=== PATIENT | female | born 1980 | race Caucasian/White ===

== ENCOUNTER 2017-07-31 12:23 | Outpatient (CLI) | payer BC ==
[~2017-07-31 12:23] MED LIST: Gadobenate Dimeglumine 529 MG/1 ML (20ML VIAL) ONE
--- NOTE | 2017-07-31 17:19 | MRI ---
EXAM: MRI CERVICAL SPINE WITH AND WITHOUT CONTRAST 07/31/17 HISTORY: Cervical fusion. Cervical radiculopathy. Numbness and tingling in upper back and neck x3 months. COMPARISON: 03/11/17 TECHNIQUE: Cervical spine MRI is performed without intravenous gadolinium administration. Multisequential, mult iplanar imaging is performed. FINDINGS: Interval fusion at C4, C5, and C6. There is associated metallic susceptibility artifact. Remainder o f the cervical spine, there is appropriate T1 marrow signal intensity. No abnormal enhancement. No s ignificant STIR hyperintensity to suggest vertebral body edema. No evidence of ligamentous injury. Visualized brain parenchyma, cervicomedullary junction, cervical cord, and the upper thoracic cord h ave a normal size and signal intensity. Postcontrast axial T1 weighted images do not demonstrate any abnormal enhancement. C2-C3: No significant disc osteophyte complex. No significant central canal stenosis. Foramina are p atent. C3-C4: Broad based disc osteophyte complex abuts the thecal sac. No significant central canal stenos is. Mild right foraminal narrowing due to degenerative change of the uncovertebral joint. Left neura l foramen is patent. C4-C5: No significant osteophyte complex. Disc prosthesis is noted. No high grade central canal sten osis. Minimal right foraminal narrowing due to degenerative change of the uncovertebral joint. Left foramen is patent. C5-C6: There is no significant osteophyte complex. Disc prosthesis is noted. No significant central canal stenosis. Mild right foraminal narrowing due to degenerative change of the uncovertebral joint . Left foramen is patent. C6-C7: No significant disc osteophyte complex. No significant central canal stenosis. Neural foramin a are patent. C7-T1: No significant disc osteophyte complex. No significant central canal stenosis. Neural foramin a are patent. IMPRESSION: 1. No significant central canal stenosis or foraminal narrowing. 2. Cervical fusion changes as above. POS: [facility]
== END 2017-07-31 12:24 | disposition home or self-care (01) ==
LOC: SCSMRI 12:23
PROVIDERS: ATTEND Neurological Surgery
DX: M54.12 Radiculopathy, cervical region (principal); Z98.1 Arthrodesis status
CPT/HCPCS: 72156; A9579

== ENCOUNTER 2017-08-24 12:24 | Outpatient (CLI) | payer BC ==
--- NOTE | 2017-08-24 14:53 | ULT ---
SOFT TISSUE ULTRASOUND: HISTORY: A 36-year-old female with a history of palpable finding in the lower back. FINDINGS: Attention is paid to a palpable finding that is to the left of the lumbar spine is to the left of the lumbar spine. There is an oval hypoechoic solid structure measuring 0.3 x 0.8 x 0.6 cm in size which appears to be in the dorsal superficial fascia overlying the underlying paraspinous musculature. Etiology of this is uncertain. It is not a cyst. IMPRESSION: Nonspecific circumscribed hypoechoic solid mass measuring 0.3 x 0.6 x 0.8 cm which appears to be in t he dorsal superficial fascia overlying the underlying dorsal paraspinous musculature in the region of the palpable finding and could certainly represent the palpable finding. Etiology is uncertain. Th is could conceivably represent a very small neoplastic mass or could represent a small residual focus from prior trauma or other prior insult to this region. If this remains a strong clinical concern, a followup focused MRI with attenuation to this region with and without IV contrast with a marker wilman karey on the skin at the area of palpable concern is suggested for further assessment. POS: [facility]
== END 2017-08-24 12:25 | disposition home or self-care (01) ==
LOC: SCSULT 12:24
PROVIDERS: ATTEND Internal Medicine
DX: L98.9 Disorder of the skin and subcutaneous tissue, unspecified (principal); R22.2 Localized swelling, mass and lump, trunk
CPT/HCPCS: 76999

== ENCOUNTER 2018-04-20 18:22 | Emergency (ER) | payer BC ==
[~2018-04-20 18:22] MED LIST changes: -Gadobenate Dimeglumine 529 MG/1 ML (20ML VIAL) ONE; +ISOVUE-370 76%-LOCM 1 ML ONE
[2018-04-20 19:14] LABS: #Basophils 0.1 thou/uL (0.0-0.2); #Eosinphils 0.2 thou/uL (0.0-0.7); #Neutrophils 6.7 thou/uL (1.40-6.50); %Basophils 0.8 % (0.0-1.0); %Lymphocytes 33.4 % (21.0-51.0); %Monocytes 7.9 % (0.0-10.0); %Neutrophils 55.8 % (42.0-75.0); Hemoglobin 14.5 g/dL (12.0-16.0); Mean Corpuscular HGB CONC 34.9 g/dL (32.0-36.0); Mean Corpuscular Volume 88.6 fL (78.0-98.0); Mean Platelet Volume 6.2 fL (7.4-10.4); Platelet Count 303 thou/uL (130-400); RBC Distribution Width 11.6 % (11.5-14.5); Red Blood Cell (RBC) Count 4.68 mill/uL (4.20-5.40)
[2018-04-20 19:42] LABS: CKMB 1.2 ng/mL (0-6.6); Troponin I Less than 0.010 ng/mL (< 0.028)
[2018-04-20] MEDS ORDERED: Promethazine 25 MG TAB ONE (19:44)
[2018-04-20 20:13] LABS: ALT (SGPT) 21 U/L (8-55); AST (SGOT) 22 U/L (5-34); Albumin 4.4 g/dL (3.5-5.0); Alkaline Phosphatase 69 U/L (40-150); Anion Gap 17 mmol/L (10-20); BUN (Urea Nitrogen) 18 mg/dL (7.0-18.7); Bilirubin, Total 0.5 mg/dL (0.2-1.2); Calc. Creatinine Clearance 0 mL/min (70-130); Calcium 9.4 mg/dL (7.8-10.44); Carbon Dioxide 17 mmol/L (22-29); Chloride 106 mmol/L (98-107); Estimated GFR-MDRD 75; Globulin 3.4 g/dL (2.4-3.5); Glucose 83 mg/dL (70-105); Potassium 4.1 mmol/L (3.5-5.1); Protein, Total 7.8 g/dL (6.0-8.3)
[2018-04-20 20:18] LABS: Sodium 136 mmol/L (136-145)
--- NOTE | 2018-04-20 20:38 | CT ---
CT ANGIOGRAM THORAX WITH IV CONTRAST AND 3D RECONSTRUCTIONS: 04/20/18 HISTORY: Nonproductive cough. Shortness of breath and abdominal pain. COMPARISON: None available. FINDINGS: No filling defects are seen in the pulmonary arteries to suggest a pulmonary embolus. The thoracic aorta is normal in caliber without evidence of an aortic dissection. Mediastinal structures have a normal appearance; however, there is an increased density focus seen wi thin the mid thoracic esophagus which may be related to ingested material. This measures approximatel y 9 mm. A noncalcified pulmonary nodule measuring 4 mm is seen in the right lower lobe. The lungs are otherwi se clear. There is no mass or pleural effusion identified. The visualized upper abdomen has a normal CT appearance. IMPRESSION: 1. No CT evidence of a pulmonary embolus. 2. Nonspecific 4 mm pulmonary nodule right lower lobe. 3. Approximately 9 mm increased density focus in the mid thoracic esophagus which may represent recently ingested material. This cannot be further evaluated on this exam. POS: [facility]
== END 2018-04-20 22:02 | disposition home or self-care (01) ==
LOC: ERS 18:22
DX: T18.108A Unspecified foreign body in esophagus causing other injury, initial encounter (principal); R91.1 Solitary pulmonary nodule; F41.9 Anxiety disorder, unspecified
CPT/HCPCS: 36415; 71275; 80053; 82553; 83605; 84484; 85025; 87040; 93005; 96360; 96361

== ENCOUNTER 2018-04-22 11:19 | Day surgery (SDC) | payer BC ==
[2018-04-22] MEDS ORDERED: Ondansetron HCl/PF 4 MG/2 ML Vial ONE (13:47)
--- NOTE | 2018-04-22 17:32 | OP ---
DATE OF PROCEDURE: 04/22/2018 PREOPERATIVE DIAGNOSIS: Chronic cough, abnormal CT of esophagus. DESCRIPTION OF PROCEDURE: After informed consent was obtained, the patient placed in the left latera l decubitus position. Anesthesia was administered per the Anesthesia Department. Forward-viewing en doscope was inserted into the esophagus under direct visualization with ease and passed to the second portion of the duodenum with ease. Second portion of duodenum and duodenal bulb were normal. The p ylorus, antrum, body, fundus, and cardia were normal. Retroflexion in the stomach was normal. The e sophagus showed single erosion in the distal esophagus. There was no foreign body. A 52-[place] Demarco makenzie dilator was passed without resistance and no post-dilatation changes. ASSESSMENT: 1. Grade reflux esophagitis. 2. Otherwise normal esophagogastroduodenoscopy. RECOMMENDATIONS: 1. Increase PPI to b.i.d. 2. May need to consider a referral to Thoracic Surgery if symptoms persist.
== END 2018-04-22 14:50 | disposition home or self-care (01) ==
LOC: SDC 11:19
PROVIDERS: ATTEND Internal Medicine Gastroenterology
PROC: 0DJ08ZZ Inspection of Upper Intestinal Tract, Via Natural or Artificial Opening Endoscopic (ICD-10-PCS; principal; 2018-04-22)
PROC: 0D757ZZ Dilation of Esophagus, Via Natural or Artificial Opening (ICD-10-PCS; principal; 2018-04-22)
DX: K21.0 Gastro-esophageal reflux disease with esophagitis (principal); K52.9 Noninfective gastroenteritis and colitis, unspecified; F41.9 Anxiety disorder, unspecified; Z88.5 Allergy status to narcotic agent; Z79.899 Other long term (current) drug therapy
CPT/HCPCS: 87324; 87449; J2405

== ENCOUNTER 2018-08-10 15:48 | Outpatient (CLI) | payer BC ==
--- NOTE | 2018-08-10 18:27 | RAD ---
CERVICAL SPINE THREE VIEWS: 08/10/18 HISTORY: 38-year-old female with history of neck pain, M54.2 - prior surgery one year ago, now with migraines and dizziness when bending neck. COMPARISON: 06/11/17. FINDINGS: Anterior cervical fusion changes at C4, C5 and C6 with intradiscal prosthesis, stable from prior stud y. Flexion and extension lateral views are included. No evidence for abnormal translation between fle xion and extension. No significant malalignment. No prevertebral soft tissue swelling. IMPRESSION: Anterior cervical fusion changes at C4, C5 and C6. Stable from prior study. No significant new proces s. POS: [facility]
== END 2018-08-10 15:49 | disposition home or self-care (01) ==
LOC: TBSIIMAG 15:48
PROVIDERS: ATTEND Neurological Surgery
DX: M54.2 Cervicalgia (principal); Z98.1 Arthrodesis status
CPT/HCPCS: 72040

== ENCOUNTER 2018-08-30 13:13 | Outpatient (CLI) | payer BC ==
[~2018-08-30 13:13] MED LIST changes: +Gadobenate Dimeglumine 529 MG/1 ML (20ML VIAL) ONE; -ISOVUE-370 76%-LOCM 1 ML ONE
--- NOTE | 2018-08-30 15:44 | CT ---
CT CERVICAL SPINE WITHOUT CONTRAST: HISTORY: Cervical fusion last year. Neck and shoulder pain. COMPARISON: 05/23/2017 FINDINGS: There is straightening of the normal cervical lordosis. There is an anterior fusion plate with a tra nsvertebral body screw at C4, C5, and C6. Interval increased attenution disk prosthesis, compatible with incorporation. Straightening of normal cervical lordosis is presumed to be due to fusion change s. Vertebral body height is maintained. No fracture. No craniocervical dissociation. The lateral masses of C1 and C2 articulate appropriately. Soft tiss ue neck structures, upper mediastinum, and lung apices are unremarkable. Limited evaluation of the contents of the central spinal canal and neural foramina due to technique. C2-C3: No significant central canal stenosis. The foramina are patent. C3-C4: No significant central canal stenosis. Mild right foraminal narrowing. The left neural fora men is patent. C4-C5: No significant central canal stenosis. The neural foramina are patent. C5-C6: Broad-based osteophyte ridge. Mild central canal stenosis. Degenerative changes in the righ t uncovertebral joint result in mild to moderate right foraminal narrowing. The left neural foramen is patent. C6-C7: No significant central canal stenosis. Neural foramina narrowing. C7-T1: No significant central canal stenosis. The neural foramina are patent. IMPRESSION: 1. Cervical fusion hardware change, as above. No significant central canal stenosis or significant neural foraminal narrowing. 2. No evidence of rey-hardware lucency to suggest a complication or loosening. POS: [facility]
--- NOTE | 2018-08-30 15:58 | MRI ---
MRI LUMBAR SPINE NONCONTRAST: DATE: 08/30/18 HISTORY: 38-year-old female with lumbar radiculopathy, M54.16. COMPARISON: 01/06/17. FINDINGS: The bone marrow signal is normal. For the purposes of this report, it will be assumed that there are five lumbar-type vertebrae. Conus medullaris terminates at upper L1. Bone marrow signal is normal. Al l levels from T12-L1 through L3-4 are normal. L4-5: Disc desiccation and mild disc space narrowing. Mild diffuse disc bulge plus superimposed smal l central and bilateral paracentral, shallow disc protrusion with annular fissure, slightly indenting the ventral aspect of the thecal sac, contacting the bilateral L5 nerve roots, but without ana com pression. No high grade central spinal canal stenosis and no high grade neural foraminal stenosis. No high grade degenerative facet changes. L5-S1: Disc desiccation. Disc space preserved. Central and left paracentral small, shallow disc prot rusion with annular fissure abuts the left S1 nerve root at the lateral recess, without ana impinge ment. No central stenosis or neural foraminal stenosis. No high grade facet DJD. No major interval change overall since 01/06/17. IMPRESSION: 1. Mild degenerative disc changes at L4-5 and L5-S1, where there are small disc protrusions with jack ular fissures. 2. The rest of the levels are normal. 3. No interval change since 01/06/17. JAMILAH Hedrick POS: [facility]
--- NOTE | 2018-08-30 16:47 | MRI ---
MRI CERVICAL SPINE WITH AND WITHOUT CONTRAST: 08/30/2018 HISTORY: A 38-year-old female with M54.12, cervical radiculopathy. COMPARISON: 07/31/2017 TECHNIQUE: Multisequence MRI of the cervical spine obtained, in sagittal and axial planes, pre and post IV injec tion of 12 mL of MultiHance Gadolinium based contrast agent. FINDINGS: No abnormal enhancement, signal abnormality, mass, or syringohydromyelia, involving the cervical spin al cord. No Chiari I malformation. Vertebral body heights are maintained. Alignment is normal. An terior metallic plate and screws at C4, C5, and C6, which causes magnetic susceptibility artifact mateo t obscures the bone marrow signal of those vertebral bodies. There is no bone marrow edema elsewhere . There are bilateral moderate degenerative facet changes at C7-T1. Mild left-sided degenerative fa cet changes at C6-C7. No other significant facet DJD at other levels. There is mild central spinal canal stenosis at C3-C4, C4-C5, and C5-C6, on a congenital basis, due to developmentally short pedicl es. There is no high-grade central spinal canal stenosis at any level. There is no severe neural fo raminal stenosis at any level. There is mild to moderate right neural foraminal stenosis at C5-C6 an d bilaterally at C6-C7. No severe neural foraminal stenosis at any level. No significant interval c hange since 07/31/2017. IMPRESSION: 1. Status post anterior cervical diskectomy and fusion at C4-5-6. 2. Moderate bilateral facet osteoarthrosis at C7-T1. 3. No severe central stenosis or severe neural foraminal stenosis at any level. 4. No significant interval change since 07/31/2017. POS: [facility]
== END 2018-08-30 13:14 | disposition home or self-care (01) ==
LOC: BICMRI 13:13
PROVIDERS: ATTEND Neurological Surgery
DX: M51.16 Intervertebral disc disorders with radiculopathy, lumbar region (principal); M54.12 Radiculopathy, cervical region; M47.813 Spondylosis without myelopathy or radiculopathy, cervicothoracic region; M51.37 Other intervertebral disc degeneration, lumbosacral region; Z98.890 Other specified postprocedural states; Z98.1 Arthrodesis status
CPT/HCPCS: 72125; 72148; 72156; A9579

== ENCOUNTER 2019-01-14 13:40 | Outpatient (CLI) | payer BC ==
--- NOTE | 2019-01-14 14:29 | CT ---
EXAM: CT Chest W Con PROVIDED CLINICAL HISTORY: Follow up pulmonary nodule COMPARISON: CT angiogram thorax on 04/20/2018 FINDINGS: There is a stable 4 mm noncalcified pulmonary nodule again seen in the right lower lobe (image 53, se erum 3). No additional pulmonary nodule or mass is seen. There is no pleural effusion identified. The lungs otherwise appear clear aside from minimal dependent atelectasis. The thoracic aorta is normal in caliber without evidence of an aortic dissection. Mediastinal structu res have a normal appearance. Previously noted increased density focus within the mid thoracic esophagus is no longer visualized on today's examination and may have been related to ingested material on the prior exam. Visualized upper abdomen demonstrates a normal CT appearance. There is partial visualization of anterior cervical fusion lower cervical spine. IMPRESSION: Stable right lower lobe pulmonary nodule measuring 4 mm.
== END 2019-01-14 13:41 | disposition home or self-care (01) ==
LOC: BICCT 13:40
PROVIDERS: ATTEND Internal Medicine Pulmonary Disease
DX: R91.1 Solitary pulmonary nodule (principal)
CPT/HCPCS: 71260

== ENCOUNTER 2019-09-29 08:59 | Outpatient (CLI) | payer BC ==
--- NOTE | 2019-09-29 09:38 | BD ---
BONE DENSITOMETRY: INDICATION: Postmenopausal osteoporosis screening. FINDINGS: Both hips were evaluated. BMD (g/cm2) LEFT: Femoral Neck: 0.725 T-Score: -1.1 Total Femur: 0.912 T-Score: -0.2 RIGHT: Femoral Neck: 0.744 T-Score: -0.9 Total Femur: 0.945 T-Score: 0.0 Impression: 1. Bone mineral density of the left femoral neck indicates osteopenia. 2. Bone mineral density of the right femoral neck within normal range. POS: [facility]
== END 2019-09-29 09:00 | disposition home or self-care (01) ==
LOC: BICMAMMO 08:59
PROVIDERS: ATTEND Internal Medicine
DX: M81.0 Age-related osteoporosis without current pathological fracture (principal); M85.852 Other specified disorders of bone density and structure, left thigh
CPT/HCPCS: 77080

== ENCOUNTER 2020-12-18 10:23 | Outpatient (CLI) | payer BC, OTHER ==
[2020-12-18] MEDS ORDERED: Magnevist 469MG/ML 20 ML VIAL ONE (11:48)
== END 2020-12-18 10:24 | disposition home or self-care (01) ==
LOC: BICMRI 10:23
PROVIDERS: ATTEND Internal Medicine
DX: H93.A9 Pulsatile tinnitus, unspecified ear (principal)
CPT/HCPCS: 70544; 70553